=== PATIENT | female | born 1945 | race Caucasian/White ===

== ENCOUNTER 2017-07-28 07:55 | Day surgery (SDC) | payer OTHER ==
[~2017-07-28 07:55] MED LIST: ATENOLOL25 MG PO; CIPRO500 MG PO; CRESTOR10 MG PO; HYDROCHLOROTH12.5 MG PO; OXYCONTIN15 MG PO; PREDNISONE20 MG PO; PROZAC10 MG PO
--- NOTE | 2017-07-28 10:09 | NUR ---
RN ASSISTED MD WITH RIGHT AXILLARY BIOPTY BIOPSY. PT TOLERATES PROCEDURE WELL.
--- NOTE | 2017-07-28 11:12 | NUR ---
LE 1020: VERBAL DC INSTRUCTIONS GIVEN AND PT VERBALIZES UNDERSTANDING. PT DRESSES SELF AND IS DC HOME AMBULATORY AFTER USING THE RESTROOM.
--- NOTE | 2017-07-29 16:39 | OR ---
[facility] [address] [place], [place] [address] Signed DATE OF OPERATION: 07/28/2017 SURGEON: Yumiko Carter MD PREOPERATIVE DIAGNOSES: 1. History of bilateral mastectomy for breast cancer. 2. New mass low axilla with right side suspicious for recurrent breast cancer. POSTOPERATIVE DIAGNOSES: 1. History of bilateral mastectomy for breast cancer. 2. New mass low axilla with right side suspicious for recurrent breast cancer. PROCEDURE: Right low axilla/chest wall core biopsy (Bioptigen, biopsy). SURGEON: Yumiko Carter MD ANESTHESIA: A 1% lidocaine local. INDICATION: This 71-year-old white woman has undergone bilateral mastectomy for breast cancer number of years ago. I saw her for several years ago when she had a nonhealing wound to the right axilla requiring a skin graft for healing. She does have family history of breast cancer in a sister and mother and BRCA testing was performed, which was negative. She has in the past number of months developed a mass in the low right axilla, which clinically is suggestive of local recurrence. Core biopsy is recommended to assess for recurrent disease. The risks of bleeding, infection, need for open procedure, and need for additional treatment, so forth were reviewed with her. She understands and wished to proceed. FINDINGS: The soft tissue mass was firm. Three good core biopsies were obtained with a Bioptigen device. There was no untoward bleeding. DESCRIPTION OF PROCEDURE: In the supine semi-recumbent position, her right arm was elevated and the right axilla prepared with a chlorhexidine solution and draped sterilely. A 1% lidocaine with epinephrine was injected locally. A small incision was made in the skin with an 11 blade and using 14-gauge Bioptigen device, three separate cores of tissue were taken of the offending lesion. A small amount of bleeding was easily controlled with pressure. A Band-Aid was applied. Appropriate labeling of the specimen and handling was undertaken. She tolerated the procedure well. Electronically Signed By: YUMIKO CARTER MD 07/29/17 1639 PATIENT NAME: SUDHA PEDROZA OPERATIVE REPORT DATE OF : 41 PHYSICIAN: YUMIKO CARTER MD REPORT #: [id number] REPORT IS CONFIDENTIAL AND NOT TO BE RELEASED WITHOUT AUTHORIZATION [address] [address] Signed MD BEVERLY Mcmahan/MODL /[id number] cc: Long Robb DO Electronically Signed By: YUMIKO CARTER MD 07/29/17 1639 PATIENT NAME: SUDHA PEDROZA OPERATIVE REPORT DATE OF : 41 PHYSICIAN: YUMIKO CARTER MD REPORT #: [id number] REPORT IS CONFIDENTIAL AND NOT TO BE RELEASED WITHOUT AUTHORIZATION
[2017-08-12] MEDS ORDERED: TRAMADOL HCL50 MG PO (14:57)
[2017-08-12] MEDS ORDERED: VITAMIN C1000 MG PO (14:58)
[2017-08-12] MEDS ORDERED: MULTIVITAMINS1 EAC7 PO (14:58)
[2017-08-12] MEDS ORDERED: CALCIUM 1,0001 EACH PO (14:59)
[2017-09-21] MEDS ORDERED: FEMARA2.5 MG NG (13:42)
[2017-09-21] MEDS ORDERED: ZYRTEC10 M3 PO (13:42)
[2017-09-21] MEDS ORDERED: IBRANCE125 MG PO (13:43)
== END 2017-07-28 10:20 | disposition home or self-care (01) ==
LOC: DS 07:55
PROC: 0HBT3ZX Excision of Right Breast, Percutaneous Approach, Diagnostic (ICD-10-PCS; principal; 2017-07-28)
DX: C50.911 Malignant neoplasm of unspecified site of right female breast (principal); G47.30 Sleep apnea, unspecified; E78.5 Hyperlipidemia, unspecified; I10 Essential (primary) hypertension; F17.200 Nicotine dependence, unspecified, uncomplicated; E66.01 Morbid (severe) obesity due to excess calories; Z68.41 Body mass index [BMI] 40.0-44.9, adult; Z17.0 Estrogen receptor positive status [ER+]; Z88.0 Allergy status to penicillin; Z88.1 Allergy status to other antibiotic agents; Z88.8 Allergy status to other drugs, medicaments and biological substances; Z99.89 Dependence on other enabling machines and devices; Z79.52 Long term (current) use of systemic steroids; Z79.899 Other long term (current) drug therapy; Z90.13 Acquired absence of bilateral breasts and nipples; Z98.41 Cataract extraction status, right eye; Z98.890 Other specified postprocedural states

== ENCOUNTER 2020-09-10 13:44 | Emergency (ER) | payer OTHER ==
[~2020-09-10] VITALS: Ht 165.1 cm; Wt 112.9 kg
[~2020-09-10 13:44] MED LIST changes: +ADVIL PM CAPLE1 EACH PO; +CALCIUM 1,0001 EACH PO; +CITRUCEL479 GM PO; +FEMARA2.5 MG NG; +FISH OIL 1,0001 EAC2 NG; +IBRANCE125 MG PO; +IBUPROFEN200 M1 PO; +LOSARTAN POTAS100 MG PO; +MIRALAX119 GM PO; +MULTIVITAMINS1 EAC7 PO; +NORVASC5 MG PO; +TEMOVATE30 GM TOP; +TOPROL XL100 MG PO; +TRAMADOL HCL50 MG PO; +TYLENOL325 MG PO; +VITAMIN C1000 MG PO; +ZYRTEC10 M3 PO
== END 2020-09-10 15:10 | disposition home or self-care (01) ==
LOC: ED 13:44
DX: S92.901A Unspecified fracture of right foot, initial encounter for closed fracture (principal); W22.8XXA Striking against or struck by other objects, initial encounter

== ENCOUNTER 2020-11-29 22:36 | Emergency (ER) | payer OTHER ==
[~2020-11-29] VITALS: Ht 165.1 cm; Wt 113.0 kg
== END 2020-11-30 00:24 | disposition home or self-care (01) ==
LOC: ED 22:36
DX: L50.9 Urticaria, unspecified (principal); I10 Essential (primary) hypertension; J44.9 Chronic obstructive pulmonary disease, unspecified; F17.200 Nicotine dependence, unspecified, uncomplicated; Z88.8 Allergy status to other drugs, medicaments and biological substances; Z88.0 Allergy status to penicillin; Z88.2 Allergy status to sulfonamides; Z88.1 Allergy status to other antibiotic agents; Z79.899 Other long term (current) drug therapy
CPT/HCPCS: 99283; Q0177

== ENCOUNTER 2023-01-11 10:12 | Emergency (ER) | payer OTHER ==
[~2023-01-11] VITALS: Ht 165.1 cm; Wt 113.0 kg
[2023-01-11 17:40] VITALS: BP 175/56
--- NOTE | 2023-01-12 16:28 | EKG ---
[facility] [address] [facility] [place] [address] Signed Marked sinus bradycardia with 1st degree AV block Abnormal ECG No previous ECGs available Confirmed by PHYLLIS BOWEN MD ([id number]) on 01/12/2023 4:27:49 PM Electronically Signed By: PHYLLIS BOWEN MD 01/12/23 1628 PATIENT NAME: SUDHA PEDROZA Electrocardiogram DATE OF : 41 PHYSICIAN: PHYLLIS BOWEN MD REPORT #: [id number] REPORT IS CONFIDENTIAL AND NOT TO BE RELEASED WITHOUT AUTHORIZATION
== END 2023-01-11 17:40 | disposition short-term general hospital (02) ==
LOC: ED 10:12
DX: I44.1 Atrioventricular block, second degree (principal); R35.0 Frequency of micturition; I10 Essential (primary) hypertension; J44.9 Chronic obstructive pulmonary disease, unspecified; F17.200 Nicotine dependence, unspecified, uncomplicated; Z20.822 Contact with and (suspected) exposure to COVID-19; Z88.8 Allergy status to other drugs, medicaments and biological substances; Z88.0 Allergy status to penicillin; Z88.2 Allergy status to sulfonamides; Z88.1 Allergy status to other antibiotic agents; Z91.048 Other nonmedicinal substance allergy status; Z79.899 Other long term (current) drug therapy
CPT/HCPCS: 36415; 70450; 71045; 80053; 81003; 83735; 83880; 84443; 84484; 85025; 85610; 87502; 93005; 93010; C9803; U0003

== ENCOUNTER 2023-04-21 06:00 | Day surgery (SDC) | payer OTHER ==
[2023-04-14 10:56] VITALS: BP 173/94
--- NOTE | 2023-04-14 12:32 | NUR ---
PT UNABLE TO TELL SALES AND LEASING CONSULTANT HER MEDICATIONS. LOOKED AT MEDICAL RECORD FROM HER PCP AND IT WAS NOTED THAT SHE TAKE ELIQUS 5MG BID. PHONE CALL TO PT LEFT MESSAGE FOR HER TO CALL SALES AND LEASING CONSULTANT BACK. ALSO TALKED WITH DR CARTER AND HE NOTIFIED HIS OFFICE TO MAKE CONTACT WITH PT ALSO. SALES AND LEASING CONSULTANT WILL TRY TO REACH PATIENT LATER TODAY ALSO.
--- NOTE | 2023-04-18 08:34 | NUR ---
PT LEFT VOICE MAIL AND SAID THAT SHE IS GOING TO STOP THE EQULIS, BUT DID NOT TELL ME WHAN. BUT IT IS PER HER CARDIO DOCTOR.
[~2023-04-21] VITALS: Ht 165.1 cm; Wt 115.5 kg
[~2023-04-21 06:00] MED LIST changes: +ELIQUIS5 MG PO
[2023-04-21 06:23] VITALS: BP 159/76
--- NOTE | 2023-04-21 08:18 | NUR ---
PT IN BED. THREE OF HER ADULT CHILDREN IN ROOM. ALL DENIED NEEDS. CONSENTED TO PRAYER. PRAYED FOR SUCCESSFUL PROCEDURE AND ABIDING PEACE. GAVE PAGER #4 TO DAUGHTER.
[2023-04-21] MEDS ORDERED: TYLENOL EXTRA500 MG PO (08:34)
[2023-04-21] MEDS ORDERED: PERCOCET 7.5-31 EACH PO (08:35)
--- NOTE | 2023-04-21 08:42 | NUR ---
04/21/23 0842 Sheets,Kori 0823 PT ARRIVED TO PACU ON RA, O2 SAT 90% AND PT WAKES EASILY TO VERBAL STIMULI. 0825 PT O2 SAT HIGH 80S, PT ENCOURGED TO DEEP BREATHE AND COUGH, PT ABLE TO DO SO. NC PLACED 2L. 0827 O2 SAT CONTINUES TO REMAIN HIGH 80S. O2 INCREASED TO 3L, PT COUGHING AND SMALL AMOUNT OF SPUTUM NOTED. PT DEEP BREATHING OFF AND ON, O2 INCREASED TO LOW 90S. 0835 PT DENIES PAIN AND NAUSEA. PT SIPPING WATER PER REQUEST. 0837 MD AT BEDSIDE TALKING TO PT. 0841 O2 SAT 89%, BREATHING AND COUGHING EDUCATION GIVEN. O2 SAT INCREASED TO LOW 90S.
[2023-04-21 09:35] VITALS: BP 139/59
--- NOTE | 2023-04-21 09:51 | NUR ---
BO 0935: PT IS BACK TO DS FROM PACU. SHE IS ON HER CPAP WITH A 4L BLEED IN OF OXYGEN. HER OXYGEN SATS DROP DOWN TO 84%, SHE IS ENCOURAGED TO COUGH AND DEEP BREATH, SHE GETS UP TO 94%. SOON SHE FALLS BACK ASLEEP AND HAS NO STIMULATION SHE DROPS BACK DOWN TO 86%. FAMILY IS BROUGHT IN THE ROOM TO KEEP HER STIMULATED AND AWAKE. SHE HAS HER CALL LIGHT WITHIN REACH. WATER AND COFFEE ON BEDSIDE TABLE. SHE REPORTS HER HANDS/FINGERS BEING COLD, KAYODE HUGGER IS TURNED ON AND PUT UNDER THE BLANKET TO HELP WARM THEM UP.
[2023-04-21 10:30] VITALS: BP 125/59
--- NOTE | 2023-04-21 10:31 | NUR ---
PT IS TAKEN OFF CPAP AND , SHE IS BEGIN TRIALED ON ROOM AIR. SHE HAS BEEN MAINTAINING AT 90% OR ABOVE ON ROOM AIR. SHE DENIES PAIN. FAMILY IS AT THE BEDSIDE. SHE IS TOLERATING WATER AND COFFEE. CALL LIGHT WITHIN REACH. NO ADDITIONAL NEEDS OR CONCERNS.
--- NOTE | 2023-04-21 11:33 | NUR ---
THIS RN WALKS IN THE ROOM TO SEE SON MESSING WITH THE OXYGEN. SHE IS CURRENTLY ON 1L VIA NC. WHILE ON O2 SHE MAINTAINS ABOVE 90%, WHEN SHE IS OFF SHE QUICKLY DROPS TO 88% OR BELOW. SHE INDICATES THAT SHE WOULD LIKE TO GO HOME. SHE IS EDUCATED THAT IT IS NOT SAFE FOR THIS RN TO SEND HER HOME IF SHE IS NOT ABLE TO TOLERATE ROOM AIR, STAYING AT 90% OR ABOVE. SHE HAS MET ALL OTHER DC CRITERIA AT THIS TIME. WE JUST NEED HER TO BE ABLE TO MAINTAIN AT 90% OR ABOVE ON ROOM AIR.
--- NOTE | 2023-04-21 11:45 | NUR ---
1040: PATIENT PUT FOREIGN AGENT LIGHT. DAUGHTER OF PATIENT WOULD LIKE PATIENT TO GET UP TO COMMODE, STATING THAT PATIENT HAS BEEN INCONTINENT OF URINE IN BED. PATIENT'S O2 SAT ALARMING, DOWN TO 74%. EAR O2 SENSOR PLACED ON PATIENT. EAR SENSOR READING 82% ON ROOM AIR. PATIENT ENCOURAGED TO TAKE DEEP BREATHS. O2 SAT UP TO 91% AFTER TAKING DEEP BREATHS. PATIENT'S O2 SAT FREQUENTLY BACK DOWN IN THE 80s. 2L OXYGEN VIA NASAL CANNULA PLACED ON PATIENT. O2 SAT UP IN MID 90s WITH OXYGEN. PATIENT THEN ASSISTED OOB AND TO BEDSIDE COMMODE. BED LINENS WET WITH URINE. VOID PER BSC. BED LINENS CHANGED. PATIENT ASSISTED BACK TO BED. OXYGEN DIPPING DOWN IN TO 80s INTERMITTENTLY. INCREASES WITH DEEP BREATHS. FAMILY AT BEDSIDE. 1055: PATIENT'S O2 SAT UP TO 95% ON 2 L. OXYGEN DECREASED TO 1 L VIA NC. FAMILY AT BEDSIDE.
[2023-04-21 11:55] VITALS: BP 135/70
--- NOTE | 2023-04-21 11:57 | NUR ---
PT IS STILL HAVING TROUBLE MAINTAINING AN O2 ABOVE 90%. SHE IS PUT BACK UP TO 2L NC AND SHE DROPS DOWN TO 88%. SHE IS ENCOURAGED TO TRY AND STAY AWAKE, COUGH, AND DEEP BREATH. FAMILY IS STILL AT THE BEDSIDE. CALL LIGHT IS WITHIN REACH.
--- NOTE | 2023-04-21 12:24 | NUR ---
PT'S O2 IS TURNED DOWN TO 1L. SHE HAS BEEN STAYING AWAKE AND STIMULATED BY FAMILY.
--- NOTE | 2023-04-21 13:34 | NUR ---
LE 1250: PT HAS BEEN ABLE TO TOLERATE ROOM AIR AT 90% OR ABOVE FOR THE LAST TEN MINUTES. SHE WOULD LIKE TO GO HOME AT THIS TIME. PT AND FAMILY ARE GIVEN WRITTEN AND VERBAL DC INSTRUCTIONS. QUESTIONS ASKED AND ANSWERED. PT AND FAMILY VERBALIZE UNDERSTANDING OF DC INSTRUCTIONS. SHE IS TAKEN OUT TO PERSONAL VEHICLE VIA WC. SHE TRANSFERS HERSELF WITH MINIMAL ASSISTANCE WITHOUT ISSUES. SHE IS CHARTED OUT AT 1300.
--- NOTE | 2023-04-22 02:13 | OR ---
[facility] [address] [place], [place] [address] Signed DATE OF OPERATION: 04/21/2023 SURGEON: Yumiko Carter MD PREOPERATIVE DIAGNOSES: 1. History of right breast carcinoma, status post mastectomy and axillary dissection. 2. Recurrent right axillary mass. 3. Morbid obesity. POSTOPERATIVE DIAGNOSES: 1. History of right breast carcinoma, status post mastectomy and axillary dissection. 2. Recurrent right axillary mass. 3. Morbid obesity. 4. Lesion probably consistent with recurrent breast cancer. PROCEDURE: Excision of right axillary mass. ANESTHESIA: General, LMA; Jerry Soriano, TUBE SIZER AND CUTTER OPERATOR and local 10 mL of 0.25% Marcaine with epinephrine. INDICATION: This 77-year-old morbidly obese white woman, who is a patient of Dr. Dominguez and now Dr. Jolie Richardson, previously Dr. Long Robb. She was found to have a right axillary mass, considered likely recurrent breast cancer. The mass was identified in February of this year including an ultrasound performed on February 21, 2023 with possible invasion into the underlying pectoralis muscle. Image-guided biopsy was performed showing poorly differentiated carcinoma of breast origin, ER positive, HER-2/dima positive, and MN negative. She has been referred for excision of the mass. Understands the risk of bleeding, infection, and recurrence. She now has a pacemaker since January of this year and is on Eliquis anticoagulant for atrial fibrillation. FINDINGS: The mass was most likely recurrence. It is unclear if it was truly invasive to muscle, but was excised widely. There were no other findings of note. DESCRIPTION OF PROCEDURE: The patient was brought to the operating room and given a general LMA-type anesthetic. Preoperative antibiotic Ancef was given. Sequential compression device stockings were used and heparin subcutaneously administered. right axilla and chest wall Electronically Signed By: YUMIKO CARTER MD 04/22/23 0213 PATIENT NAME: SUDHA PEDROZA OPERATIVE REPORT DATE OF : 41 REPORT #: [id number] PHYSICIAN: YUMIKO CARTER MD PCP: JOLIE RICHARDSON MD REPORT IS CONFIDENTIAL AND NOT TO BE RELEASED WITHOUT AUTHORIZATION [facility] [address] [place], [place] [address] Signed was prepared with a chlorhexidine solution and draped sterilely. Examination and palpation revealed a mass. It seems somewhat fixed to the soft tissue, though not certainly that. A transverse incision was made directly over it and dissection carried through the subcutaneous tissue with electrocautery. Wide resection was undertaken including surrounding soft tissue. It did not appear directly invasive to muscle. Complete excision was accomplished. The wound was closed in layers with interrupted 2-0 Vicryl and a running subcuticular 3-0 Vicryl was used for the skin. Steri-Strips were applied as was an Acticoat dressing. A 10 mL of 0.25% Marcaine with epinephrine had been injected locally for postoperative analgesia. The patient was ultimately extubated and transferred to the recovery room in good condition having suffered no complications. Sponge, needle, and instrument counts were correct x3. MD BEVERLY Mcmahan/FRANCIEL /[id number] cc: Dr. Jolie Dominguez MD Copies: LEXUS DOMINGUEZ MD ~ Electronically Signed By: YUMIKO CARTER MD 04/22/23 0213 PATIENT NAME: SUDHA PEDROZA OPERATIVE REPORT DATE OF : 41 REPORT #: [id number] PHYSICIAN: YUMIKO CARTER MD PCP: JOLIE RICHARDSON MD REPORT IS CONFIDENTIAL AND NOT TO BE RELEASED WITHOUT AUTHORIZATION
--- NOTE | 2023-04-30 14:13 | PATH ---
[facility] [address] [place], [place] [address] Signed THIS IS AN ADDENDUM REPORT SPECIMEN(S): A RIGHT AXILLARY MASS SPECIMEN SOURCE: A. RIGHT AXILLARY MASS CLINICAL HISTORY: Pre: R axillary mass. Post: Excision of right axillary mass. FINAL PATHOLOGIC DIAGNOSIS: Right axillary mass: - Invasive carcinoma, consistent with infiltrating ductal carcinoma of breast origin (see comment). COMMENT: The biopsy reveals fibroadipose tissue with invasive carcinoma with histologic and immunohistochemical features consistent with invasive ductal carcinoma of breast origin (CHRISTA-3 and ER positive). It is difficult to determine with certainty whether this is a primary or metastatic tumor as there is no adjacent benign breast epithelium in the sample (this may favor metastasis, however, clinical correlation is requested). If the tumor is determined based on the clinical presentation and imaging studies to be a primary tumor, the synoptic report would be as follows: Infiltrating ductal carcinoma with the following features: - Procedure: Lumpectomy. -- Laterality: Right. - Histologic type: Invasive ductal carcinoma of no special type. - Histologic grade (Ihsan histologic score): - Tubule formation score: 2/3. - Nuclear grade score: 2/3. - Mitotic score: 3/3. - Combined histologic grade: II/III (total score: 7/9). - Tumor size: 2.3 x 1.5 x 1.1 cm. - Ductal carcinoma in situ: Absent. - Lymphovascular invasion: Present, abutting a surgical margin. - Treatment effect: Absent. - Margins: Tumor narrowly free of the inked peripheral surgical margins by < 1mm. PATIENT NAME: SUDHA PEDROZA PATHOLOGY DATE OF : 41 REPORT #: [id number] PHYSICIAN: Haha Pinche PATHOLOGY PCP: MARIE RICHARDSON MD REPORT IS CONFIDENTIAL AND NOT TO BE RELEASED WITHOUT AUTHORIZATION [facility] [address] [place], [place] [address] Signed - Regional lymph nodes: None submitted. - Distant metastasis: Not applicable. - Estrogen receptor: Positive. - 70% of tumor cells with moderate average intensity. - Progesterone receptor: Negative. - Special studies: HER2 studies are pending and will be reported as they become available. - Pathologic stage classification (pTNM): pT2, pNX, pMX. As part of [facility]' Quality Improvement Program, this case was reviewed by another member of our pathology staff. JVR:DS:[facility]:C1NR MICROSCOPIC EXAMINATION: Histologic sections of all submitted blocks are examined by light microscopy. These findings, together with the gross examination, support the pathologic diagnosis. Immunostains performed with appropriate controls on block (A1) show the following: - Smooth Muscle Myosin: Negative in areas of concern. - CHRISTA-3: Positive in tumor nuclei. JVR:sm Block: A1 The cold ischemia time is unknown. The fixative is 10% NBF. The length of fixation is unknown. Estrogen receptor clone SP1 and progesterone receptor clone 1E2 by [employer] [place], [place]. Detection: HRP Polymer Detection on the [employer] with appropriate controls. Nuclear immunoreactivity of 1% or greater is considered positive by ASCO/CAP 2020 guidelines. Internal control cells for ER are absent. Internal control cells for KS are absent. Technical testing is performed at [facility], [place], [place]. GROSS DESCRIPTION: The specimen, labeled and designated "Cindy, right axillary mass," is received in formalin and consists of yellow-weaver, soft fibroadipose tissue fragment that measures 3.5 x 3.0 x 1.5 cm. Specimen is inked. Sectioning through the specimen to reveal kerr-white, firm, ill-defined lesion that measure 2.0 x 1.1 x 1.0 cm. The lesion abuts the outside surface. Crossing through the outside surface is not grossly identified. Bakery Worker sections are submitted in (A1-A3). PATIENT NAME: SUDHA PEDROZA PATHOLOGY DATE OF : 41 REPORT #: [id number] PHYSICIAN: LIANE ALEXIS PCP: MARIE RICHARDSON MD REPORT IS CONFIDENTIAL AND NOT TO BE RELEASED WITHOUT AUTHORIZATION [address] [address] Signed JS (under the direct supervision of a pathologist) The Gross Description was prepared using a voice recognition system. The report was reviewed for accuracy; however, sound-alike word errors, addition and/or deletions may occur. If there is any question about this report, please contact Client Services. ADDITIONAL NOTES: Immunohistochemical and/or in situ hybridization studies were performed on this case with the appropriate positive controls that react as expected. This test was developed and its performance characteristics determined by [facility]. It has not been cleared or approved by the U.S. Food and Drug Administration. The FDA has determined that such clearance or approval is not necessary. This test is used for clinical purposes. It should not be regarded as investigational or for research. [facility] is certified under the Clinical Laboratory Improvement Amendments of 1988 (CLIA) as qualified to perform high complexity clinical laboratory testing. This assay has not been validated for specimens that have been decalcified. PERFORMING LABORATORY: Technical component was performed by [facility], [address] [place] [id number] (CLIA# [id number]). Professional interpretation was performed by [facility], [address] [place] [id number] (CLIA#: [id number]). The technical component was performed by [facility], [address] [place] [address] (CLIA#: [id number]). Professional interpretation was performed by [facility], [address] [facility] [place] [address] (CLIA#: [id number]). REASON FOR ADDENDUM: To report results of additional testing. ADDENDUM PATHOLOGIC DIAGNOSIS: HER-2 protein by IHC, right axillary mass: - Equivocal; IHC score 2+. ADDENDUM COMMENT: In view of the equivocal IHC result, reflex testing for HER-2 amplification by FISH has been ordered and will be reported by addendum. TTP:[facility] ADDENDUM MICROSCOPIC EXAMINATION: PATIENT NAME: SUDHA PEDROZA PATHOLOGY DATE OF : 41 REPORT #: [id number] PHYSICIAN: LIANE ALEXIS PCP: MARIE RICHARDSON MD REPORT IS CONFIDENTIAL AND NOT TO BE RELEASED WITHOUT AUTHORIZATION [facility] [address] [facility] [place], [place] [address] Signed Block: A1. The fixation is 10% buffered formalin. The length of fixation is unknown. HER-2 protein expression by immunohistochemistry using the FDA-approved HER-2 Pathway [place] [facility] [place], at the request of Dr. Farhad Barrios. The assay has not been validated for decalcified specimens. Standardized batch control materials react appropriately. The presence of tumor is confirmed. Scoring is according to ASCO/CAP 2018 guidelines for breast HER-2 testing. This assay and scoring method are not specifically validated for tissue types other than breast. Weak to moderate complete membrane staining observed in greater than 10% of tumor cells; score 2+. PERFORMING LABORATORY: The technical and professional components were performed by [facility], [address] [place] [id number] (CLIA#: [id number]). A: HER2_001 A: HER2_002 REASON FOR ADDENDUM: To add results of additional testing. Accession and block: [id number] ADDENDUM PATHOLOGIC DIAGNOSIS: HER2 gene by FISH, right axillary mass, core biopsy: - Positive for amplification. TP:kh:seymour ADDENDUM MICROSCOPIC EXAMINATION: Specimen type: core biopsy. Cold ischemia time: unknown. The fixation is 10% buffered formalin. The duration of fixation is unknown hours, not applicable to ASCO/CAP guidelines. Scoring method: Manual. Fluorescence in situ hybridization (FISH) study (multiplex probe) for HER2 gene amplification using the Free Flow Power HER2 FISHIQ pharmDx kit was performed at [facility] [place]. The assay has not been validated for decalcified specimens. Controls were processed in the same batch as the patient and reacted appropriately. Scoring for HER2 is performed according to 2018 ASCO/ASCP/CAP consensus guidelines for breast carcinoma. The patient's sample was considered adequate for interpretation. - Number of nuclei counted: 40 PATIENT NAME: SUDHA PEDROZA PATHOLOGY DATE OF : 41 REPORT #: [id number] PHYSICIAN: LIANE PATHOLOGY PCP: MARIE RICHARDSON MD REPORT IS CONFIDENTIAL AND NOT TO BE RELEASED WITHOUT AUTHORIZATION [facility] [address] [place], [place] [address] Signed - Number of HER2 signals counted: 243 - Number of CEP17 signals counted: 101 - Average number of HER2 signals per cell: 6.1 - Average number of CEP17 signals per cell: 2.5 - HER2:CEP17 ratio: 2.4 Positive for HER2 amplification (>= 2.0 and average HER2 signals per cell is >= 4.0). Diagnostician: Farhad Barrios MD Pathologist Diagnostician: Julianne Last MD Pathologist Electronically Signed 04/30/2023 Copies: ~ PATIENT NAME: SUDHA PEDROZA PATHOLOGY DATE OF : 41 REPORT #: [id number] PHYSICIAN: LIANE ALEXIS PCP: MARIE RICHARDSON MD REPORT IS CONFIDENTIAL AND NOT TO BE RELEASED WITHOUT AUTHORIZATION
== END 2023-04-21 13:00 | disposition home or self-care (01) ==
LOC: DS 06:00
PROVIDERS: ATTEND Surgery
PROC: 0JBD0ZZ Excision of Right Upper Arm Subcutaneous Tissue and Fascia, Open Approach (ICD-10-PCS; principal; 2023-04-21 07:30)
DX: C79.89 Secondary malignant neoplasm of other specified sites (principal); I48.91 Unspecified atrial fibrillation; I10 Essential (primary) hypertension; E78.5 Hyperlipidemia, unspecified; G47.30 Sleep apnea, unspecified; Z95.0 Presence of cardiac pacemaker; Z85.3 Personal history of malignant neoplasm of breast; Z80.3 Family history of malignant neoplasm of breast; Z88.1 Allergy status to other antibiotic agents; Z88.0 Allergy status to penicillin; Z88.2 Allergy status to sulfonamides; Z88.8 Allergy status to other drugs, medicaments and biological substances; Z79.01 Long term (current) use of anticoagulants; Z79.899 Other long term (current) drug therapy
CPT/HCPCS: 00400; J0131; J0690; J1100; J1644; J2001; J2405; J2704; J3010; J3475; J3490; J7121

== ENCOUNTER 2023-07-13 15:25 | Emergency (ER) | payer MEDICARE, OTHER ==
[~2023-07-13] VITALS: Ht 165.1 cm; Wt 115.2 kg
[~2023-07-13 15:25] MED LIST changes: +PERCOCET 7.5-31 EACH PO; +TYLENOL EXTRA500 MG PO
[2023-07-13 17:01] LABS: BASOPHILS 1.1 % (0-2); EOSINOPHILS 0.4 % (0-6); HEMATOCRIT 33.9 % (35.0-50.0); HEMOGLOBIN 11.6 g/dL (12.0-18.0); MCHC 34.3 g/dl (30-36); MCV 93.4 fl (81-99); MONOCYTES 6.9 % (0-12); NEUTROPHILS 62.6 % (39-80); PLATELET COUNT 263 K/uL (140-440); RBC 3.63 M/ul (4.3-5.7); RDW 24.8 (10.5-15.0)
[2023-07-13 17:12] LABS: ALBUMIN 3.1 g/dL (3.4-5.0); ALBUMIN/GLOBULIN RATIO 0.94 (1.1-2.4); ANION GAP 13.3 (7-21); BILIRUBIN, TOTAL 0.8 ng/dL (0.2-1.0); BUN/CREATININE RATIO 13.04 (6.0-28.6); CALCIUM 8.6 mg/dL (8.5-10.1); CREATININE, SERUM 0.92 mg/dL (0.55-1.02); MAGNESIUM 1.8 mg/dL (1.8-2.4); POTASSIUM 3.3 mmol/L (3.5-5.1); PROTEIN, TOTAL 6.4 g/dL (6.4-8.2)
[2023-07-13] MEDS ORDERED: MAGNESIUM400 MG PO (18:31)
[2023-07-13] MEDS ORDERED: K-TAB ER20 MEQ PO (18:31)
[2023-07-13 18:51] VITALS: BP 141/81
== END 2023-07-13 18:50 | disposition home or self-care (01) ==
LOC: ED 15:25
PROVIDERS: Emergency Medicine
DX: R19.7 Diarrhea, unspecified (principal); I10 Essential (primary) hypertension; J44.9 Chronic obstructive pulmonary disease, unspecified; F17.200 Nicotine dependence, unspecified, uncomplicated; Z88.0 Allergy status to penicillin; Z88.1 Allergy status to other antibiotic agents; Z88.2 Allergy status to sulfonamides; Z88.8 Allergy status to other drugs, medicaments and biological substances; Z91.048 Other nonmedicinal substance allergy status; Z91.09 Other allergy status, other than to drugs and biological substances; Z79.01 Long term (current) use of anticoagulants; Z79.899 Other long term (current) drug therapy
CPT/HCPCS: 36415; 80053; 83735; 85025; 85060; 87045; 87046; 87493; A9270; J7030

== ENCOUNTER 2023-10-18 17:22 | Emergency (ER) | payer OTHER ==
[~2023-10-18] VITALS: Ht 165.1 cm; Wt 104.1 kg
[~2023-10-18 17:22] MED LIST changes: +K-TAB ER20 MEQ PO; +MACROBID 100 M100 MG PO; +MAGNESIUM400 MG PO; +ONDANSETRON ODT4 MG PO; +STIOLTO RESPIMAT4 GM IH
--- OUTSIDE RECORDS SUMMARY | 2023-10-18 17:26 | XMS ---
PreManage Notification: SUDHA PEDROZA Security Donor Specialist Events No recent Security Events currently on file [facility] There are no care providers on record at this time. Reji has no Care Guidelines for this patient. Lm VISIT COUNT (12 MO.) 4 [facility] [place] TOTAL 4 NOTE: Visits indicate total known visits. ED/UCC VISIT TRACKING (12 MO.) 10/18/2023 17:23 [facility] [place] TYPE: Emergency COMPLAINT: - POSS UTI 08/04/2023 19:42 [facility] [place] TYPE: Emergency COMPLAINT: - SHORTNESS OF BREATH DIAGNOSES: - Allergy status to other antibiotic agents - Allergy status to other drugs, medicaments and biological substances - Allergy status to penicillin - Allergy status to sulfonamides - Chronic obstructive pulmonary disease with (acute) exacerbation - Contact with and (suspected) exposure to COVID-19 - Essential (primary) hypertension - Fever, unspecified - long-term (current) use of anticoagulants - Nicotine dependence, unspecified, uncomplicated - Other fdc (current) drug therapy - Other nonmedicinal substance allergy status - Urinary tract infection, site not specified 07/13/2023 15:26 [facility] [place] TYPE: Emergency COMPLAINT: - DIARRHEA DIAGNOSES: - Allergy status to other antibiotic agents - Allergy status to other drugs, medicaments and biological substances - Allergy status to penicillin - Allergy status to sulfonamides - Chronic obstructive pulmonary disease, unspecified - Diarrhea, unspecified - Essential (primary) hypertension - long-term (current) use of anticoagulants - Nicotine dependence, unspecified, uncomplicated - Other allergy status, other than to drugs and biological substances - Other staff air defense officer (current) drug therapy - Other nonmedicinal substance allergy status 01/11/2023 10:[address] [facility] [place] TYPE: Emergency COMPLAINT: - ABDOMINAL PAIN DIAGNOSES: - Allergy status to other antibiotic agents - Allergy status to other drugs, medicaments and biological substances - Allergy status to penicillin - Allergy status to sulfonamides - Atrioventricular block, second degree - Chest pain, unspecified - Chronic obstructive pulmonary disease, unspecified - Contact with and (suspected) exposure to COVID-19 - Essential (primary) hypertension - Frequency of micturition - Nicotine dependence, unspecified, uncomplicated - Other fdc (current) drug therapy - Other nonmedicinal substance allergy status INPATIENT VISIT TRACKING (12 MO.) 01/11/2023 23:48 [facility] TYPE: General Medicine COMPLAINT: - 2 1 AV Block DIAGNOSES: - Bradycardia, unspecified [email or web address]
[2023-10-18 18:59] LABS: RDW 16.1 (10.5-15.0)
[2023-10-18] MEDS ORDERED: IBLOOD GLUCOSE TEST STRIP 1 EA TEST VI ONE (19:00)
[2023-10-18 19:01] LABS: BILIRUBIN, URINE NEGATIVE (negative); BLOOD/HGB, URINE LARGE (Negative); KETONE, URINE NEGATIVE (Negative); LEUK ESTERASE, URINE LARGE (negative); NITRITE, URINE POSITIVE (negative)
[2023-10-18 19:02] LABS: BASOPHILS 3.1 % (0-2); EOSINOPHILS 3.4 % (0-6); HEMATOCRIT 31.9 % (35.0-50.0); HEMOGLOBIN 10.9 g/dL (12.0-18.0); LYMPHOCYTES 41.8 % (24-44); MCH 38.1 (27-36); MCHC 34.4 g/dl (30-36); MCV 110.8 fl (81-99); MONOCYTES 10.9 % (0-12); NEUTROPHILS 40.8 % (39-80); PLATELET COUNT 232 K/uL (140-440); RBC 2.88 M/ul (4.3-5.7)
[2023-10-18 19:07] LABS: BACTERIA, URINE 2+ /hpf (negative); CASTS, URINE NONE SEEN \\lpf; COLLECTION TYPE, URINE CLEAN CATCH; CRYSTALS, URINE NONE SEEN (0-1+); EPITHELIAL CELLS, URINE 0 /lpf (0-1+); REFLEX CULTURE, URINE Yes (No); WHITE BLOOD CELLS, URINE >50 /HPF (0-5)
[2023-10-18 19:12] LABS: ALBUMIN 3.1 g/dL (3.4-5.0); ALBUMIN/GLOBULIN RATIO 0.91 (1.1-2.4); ALCOHOL, MEDICAL <3 ng/dL (<3); ALKALINE PHOSPHATASE 65 U/L (46-116); ALT (SGPT) 13 U/L (14-59); ANION GAP 13.6 (7-21); AST (SGOT) 18 U/L (15-37); BILIRUBIN, TOTAL 0.8 ng/dL (0.2-1.0); BUN/CREATININE RATIO 11.88 (6.0-28.6); CALCIUM 9.1 mg/dL (8.5-10.1); CARBON DIOXIDE 29 mmol/L (21-32); CHLORIDE 104 mmol/L (98-107); CREATININE, SERUM 1.01 mg/dL (0.55-1.02); GLOMERULAR FILTRATION RATE,EST 57 mL/min (>60); POTASSIUM 3.6 mmol/L (3.5-5.1); PROTEIN, TOTAL 6.5 g/dL (6.4-8.2); UREA NITROGEN 12 mg/dL (7-18)
[2023-10-18 19:21] LABS: AMPHETAMINES, URINE NEGATIVE (NEGATIVE); BARBITURATES, URINE NEGATIVE (NEGATIVE); BENZODIAZEPINE, URINE NEGATIVE (NEGATIVE); BUPRENORPHINE, URINE NEGATIVE (NEGATIVE); CANNABINOID, URINE NEGATIVE (NEGATIVE); COCAINE, URINE NEGATIVE (NEGATIVE); ECSTASY, URINE NEGATIVE (NEGATIVE); FENTANYL, URINE NEGATIVE (NEGATIVE); METHADONE, URINE NEGATIVE (NEGATIVE); OPIATES, URINE NEGATIVE (NEGATIVE); OXYCODONE, URINE NEGATIVE (NEGATIVE); PHENCYCLIDINE, URINE NEGATIVE (NEGATIVE)
[2023-10-18 20:05] LABS: PH, VENOUS 7.502 (7.31-7.41)
[2023-10-18] MEDS ORDERED: levoFLOXacin 500 MG TAB PO ONE (20:15)
[2023-10-18] MEDS ORDERED: LEVOFLOXACIN500 MG PO (20:34)
[2023-10-18 20:49] VITALS: BP 175/85
== END 2023-10-18 20:50 | disposition home or self-care (01) ==
LOC: ED 17:22
PROVIDERS: Emergency Medicine; Family Medicine
DX: N39.0 Urinary tract infection, site not specified (principal); I10 Essential (primary) hypertension; J44.9 Chronic obstructive pulmonary disease, unspecified; F17.200 Nicotine dependence, unspecified, uncomplicated; Z88.0 Allergy status to penicillin; Z88.1 Allergy status to other antibiotic agents; Z88.2 Allergy status to sulfonamides; Z88.8 Allergy status to other drugs, medicaments and biological substances; Z91.048 Other nonmedicinal substance allergy status; Z79.899 Other long term (current) drug therapy; Z79.01 Long term (current) use of anticoagulants
CPT/HCPCS: 36415; 51701; 70450; 80053; 80307; 81001; 82803; 84484; 85025; 85060; 87088; 99285-25; G0480

== ENCOUNTER 2024-02-15 22:16 | Inpatient (IN) | payer MEDICARE, OTHER ==
[~2024-02-15] VITALS: Ht 165.1 cm; Wt 94.7 kg
[~2024-02-15 22:16] MED LIST changes: +ARTHRITIS PAIN650 MG PO; +CEFDINIR300 MG PO; +CHLORHEXIDINE473 ML MM; +CLINDAMYCIN HC300 MG PO; +DAILY VALUE1 EACH PO; +FUROSEMIDE40 MG PO; +LASIX40 MG PO; +LEVOFLOXACIN500 MG PO; -MULTIVITAMINS1 EAC7 PO; +PROBIOTIC1 EAC1 PO; -PROZAC10 MG PO; +PROZAC20 MG PO; +RIFAMPIN300 MG PO; +ROSUVASTATIN CA20 MG PO; +TRIAMCINOLONE A15 G3 TOP; +TRIAMCINOLONE A15 GM TOP; -TYLENOL325 MG PO; +VENTOLIN HFA18 GM INH; -ZYRTEC10 M3 PO; +ZYRTEC10 MG PO
--- OUTSIDE RECORDS SUMMARY | 2024-02-15 22:18 | XMS ---
PreManage Notification: SUDHA PEDROZA Security Epic Analyst Events No recent Security Events currently on file CRITERIA MET - [facility] - 2 Visits in 30 Days CARE PROVIDERS CHANA SCOTT Emergency Medicine Current PHONE: [phone] NIGEL FORBES Nurse Practitioner Current PHONE: [phone] Reji has no Care Guidelines for this patient. Lm VISIT COUNT (12 MO.) [address] [place] [address] TOTAL 6 NOTE: Visits indicate total known visits. ED/UCC VISIT TRACKING (12 MO.) 02/15/2024 22:17 [facility] [place] TYPE: Emergency COMPLAINT: - ABDOMINAL PAIN 01/23/2024 14:30 [facility] [place] TYPE: Emergency COMPLAINT: - BLOOD PRESSURE PROBLEM 12/28/2023 16:01 [facility] [place] TYPE: Emergency COMPLAINT: - POSS BLOOD CLOT DIAGNOSES: - Allergy status to other antibiotic agents - Allergy status to other drugs, medicaments and biological substances - Allergy status to penicillin - Allergy status to sulfonamides - Chronic obstructive pulmonary disease, unspecified - Chronic pulmonary edema - Essential (primary) hypertension - Hypoxemia - adjunct faculty for medical terminology (current) use of anticoagulants - Nicotine dependence, unspecified, uncomplicated - Other fpc (current) drug therapy - Shortness of breath 10/18/2023 17:23 [facility] [place] TYPE: Emergency COMPLAINT: - POSS UTI DIAGNOSES: - Allergy status to other antibiotic agents - Allergy status to other drugs, medicaments and biological substances - Allergy status to penicillin - Allergy status to sulfonamides - Chronic obstructive pulmonary disease, unspecified - Disorientation, unspecified - Essential (primary) hypertension - snf (current) use of anticoagulants - Nicotine dependence, unspecified, uncomplicated - Other parts counterman (current) drug therapy - Other nonmedicinal substance allergy status - Urinary tract infection, site not specified 08/04/2023 19:42 [facility] [place] TYPE: Emergency [...] Essential (primary) hypertension - Fever, unspecified - adjunct faculty for medical terminology (current) use of anticoagulants - Nicotine dependence, unspecified, uncomplicated - Other fpc (current) drug therapy - Other nonmedicinal substance [...] Diarrhea, unspecified - Essential (primary) hypertension - adjunct faculty for medical terminology (current) use of anticoagulants - Nicotine dependence, unspecified, uncomplicated - Other allergy status, other than to drugs and biological substances - Other parts counterman (current) drug therapy - Other nonmedicinal substance allergy status INPATIENT VISIT TRACKING (12 MO.) 01/24/2024 11:26 [facility] [place] TYPE: Medical Surgical COMPLAINT: - ACUTE HYPOXIC RESPIRATORY FAILURE DIAGNOSES: - Acquired absence of bilateral breasts and nipples - Acquired absence of bilateral breasts and nipples - Acute kidney failure, unspecified - Acute kidney failure, unspecified - Acute respiratory failure with hypoxia - Allergy status to other antibiotic agents - Allergy status to other antibiotic agents - Allergy status to other drugs, medicaments and biological substances - Allergy status to other drugs, medicaments and biological substances - Allergy status to penicillin - Allergy status to penicillin - Allergy status to sulfonamides - Allergy status to sulfonamides - Chronic obstructive pulmonary disease with (acute) lower respiratory infection - Chronic obstructive pulmonary disease with (acute) lower respiratory infection - Heart failure, unspecified - Heart failure, unspecified - Hypertensive heart disease with heart failure - Hypertensive heart disease with heart failure - Hypokalemia - Hypokalemia - Hypomagnesemia - Hypomagnesemia - snf (current) use of anticoagulants - adjunct faculty for medical terminology (current) use of anticoagulants - Nicotine dependence, cigarettes, uncomplicated - Nicotine dependence, cigarettes, uncomplicated - Other fpc (current) drug therapy - Other fpc (current) drug therapy - Other specified abnormal findings of blood chemistry - Other specified abnormal findings of blood chemistry - Personal history of malignant neoplasm of breast - Personal history of malignant neoplasm of breast - Pneumonia, unspecified organism - Pneumonia, unspecified organism - Presence of automatic (implantable) cardiac defibrillator - Presence of automatic (implantable) cardiac defibrillator - Urinary tract infection, site not specified - Urinary tract infection, site not specified [email or web address]
[2024-02-15] MEDS ORDERED: FAMOTIDINE 20 MG/ 2 ML VIAL IV ONE (22:30)
[2024-02-15 23:02] LABS: ALBUMIN 2.9 g/dL (3.4-5.0); ALBUMIN/GLOBULIN RATIO 0.76 (1.1-2.4); ANION GAP 12.3 (7-21); BILIRUBIN, TOTAL 0.6 ng/dL (0.2-1.0); BUN/CREATININE RATIO 16.36 (6.0-28.6); CALCIUM 8.6 mg/dL (8.5-10.1); CREATININE, SERUM 1.1 mg/dL (0.55-1.02); POTASSIUM 4.3 mmol/L (3.5-5.1); PROTEIN, TOTAL 6.7 g/dL (6.4-8.2)
[2024-02-15 23:25] LABS: BASOPHILS 0.4 % (0-2); EOSINOPHILS 1.4 % (0-6); HEMATOCRIT 32.2 % (35.0-50.0); HEMOGLOBIN 10.5 g/dL (12.0-18.0); LYMPHOCYTES 12.2 % (24-44); MCH 29.1 (27-36); MCHC 32.7 g/dl (30-36); MCV 89.1 fl (81-99); PLATELET COUNT 173 K/uL (140-440); RBC 3.62 M/ul (4.3-5.7); RDW 17.6 (10.5-15.0)
[2024-02-15 23:44] LABS: BILIRUBIN, URINE NEGATIVE (negative); BLOOD/HGB, URINE NEGATIVE (Negative); KETONE, URINE TRACE (Negative); LEUK ESTERASE, URINE NEGATIVE (negative); NITRITE, URINE NEGATIVE (negative); PH, URINE 5.5 (5-7)
[2024-02-16] MEDS ORDERED: TRAMADOL HCL 50 MG TAB PO ONE (03:15)
[2024-02-16] MEDS ORDERED: LIDOCAINE HCL 4% 1 EACH PATCH TD ONE (03:15)
[2024-02-16] MEDS ORDERED: ENOXAPARIN SODIUM 40 MG/0.4 ML SYR SUB-Q SCH (10:30)
--- NOTE | 2024-02-16 10:50 | NUR ---
REPORT RECIEVED FROM DAWNA MORALES. PT BROUGHT TO ROOM 110 BY THIS RN VIA STRETCHER. DAWNA HOWELL AND SN PAPO IN TO ASSIST WITH TRANSFERRING PT FROM STRETCHER TO BED. VITALS COMPLETE. ASSESSMET COMPLETE. LUNG SOUNDS CLEAR IN RUL, MARTY AND RLL. DIMINISHED IN LLL. BOWEL TONES ACTIVE. PT HAS HX OF PACEMAKER. PEDAL PULSES PALPABLE, FAINT. RADIAL PULSES PALPABLE, STRONG. BRUISING NOTED TO BILATERAL HANDS. LIDOCAINE PATCH NOTED TO LEFT LOWER BACK. PUREWICK IN PLACE. PT PLACED ON 3L NC WITH O2 SATS AT 93%. PT REPORTS 3L O2 IS CHRONIC. ASKED PT WHAT THE DATE IS AND PT STATES "HOLD ON A SECOND. [employer]." INFORMED PT THAT PT DOES NOT HAVE CELL PHONE HERE AND PT STATES "OH." PT EDUCATED ON DATE. ASKED PT IF PT KNOWS WHERE WE ARE AND PT STATES "YES. WE ARE IN [place], [place]. [address] INFORMED PT WE ARE NOT AT [address], WE ARE IN THE HOSPITAL. ASKED PT WHY PT IS IN THE HOSPITAL AND PT STATES "YEAH. BECAUSE YOU GUYS ARE TRYING TO GET ME IN ONE OF THOSE ROOMS." INFORMED PT THAT PT IS HERE FOR PAIN. PT STATES "[place]." PT PROVIDED WATER. 1200 LUNCH TRAY ARRIVES. 1232 PT REPORTING PAIN 10/10 TO LOW BACK. PRN PAIN MEDICAITON ADMINSITERED, SEE MAR. PT TAKES PO MEDICATION WITH NO ISSUES. ATTEMPTED TO PUT TV ON FOR PT. TV NOTED TO NO TURN ON WITH REMOTE CONTROL OR CALL LIGHT USE. EDUCATED PT ENGINEERING DEPARTMENT CHAIR LIGHT USE. CALL LIGHT IN PTs HAND. BED ALARM ON. PT DENIES ANY OTHER NEEDS AT THIS TIME.
[2024-02-16 11:18] VITALS: BP 163/51
[2024-02-16 11:22] VITALS: BP 156/54
[2024-02-16] MEDS ORDERED: MORPHINE SULFATE 4 MG/ML VIAL IV PRN (12:00)
[2024-02-16] MEDS ORDERED: PHARMACY RENAL DOSE ADJUSTMENT 1 DOSE MISC PO SCH (12:00)
[2024-02-16] MEDS ORDERED: HYDROCODONE/ACETA 5/325 TAB PO PRN (12:00)
--- NOTE | 2024-02-16 12:04 | NUR ---
UR CLINICAL REVIEW: [facility]/16/24 @1030 YES AUTH PENDING CLINICAL NEEDS. 02/17/24
[2024-02-16] MEDS ORDERED: FLUOXETINE HCL10 MG PO (13:06)
[2024-02-16 13:44] VITALS: BP 132/53
--- NOTE | 2024-02-16 15:50 | NUR ---
WENT TO PATIENT'S ROOM TO DISCUSS THE PLAN OF CARE. PATIENT IS CONFUSED. CALLED THE PATIENT'S DAUGHTER COBY TO ANSWER QUESTIONS ABOUT THE PATIENT'S ASSESSMENT. PATIENT WAS RELEASED FROM [facility] AT THE [place] [facility] THE PATIENT WAS UNHAPPY AND CALLED THE FAMILY AND WANTED TO GO HOME. PATIENT LIVES IN HER HOUSE WITH HER GRAND DAUGHTER WHO IS THE PATIENT'S ARCHITECTURAL DRAFTSPERSON. PATIENT'S BACK PAIN HAS GOTTEN EXTERMLY BAD SO THE PATIENT STATED SHE WAS CALLING 911 TO BRING HER TO THE HOSPITAL. PATIENT HAS ALSO BEEN HAVING HALLUCINATIONS FOR LAST COUPLE MONTHS. PATIENT HAS A DOCTOR'S APPT. IN ORIENT IN APR. TO FIGURE OUT WHY THE PATIENT IS SO COFUSED AND HAVING HALLUCINATIONS. FAMILY DOES NOT WANT PLACEMENT.PATIENT WILL GO HOME WITH FAMILY AND CARE GIVERS WHEN MEDICALLY STABLE. PATIENT USES A WALKER AND WHEELCHAIR AND HER GRANDDAUGHTR HELPS WITH PATIENT'S ADLS. PATIENT CAN AFFORD HOUSING,FOOD AND UTILITIES.
--- NOTE | 2024-02-16 16:28 | NUR ---
MED REC COMPLETE
[2024-02-16 17:02] VITALS: BP 132/53
--- NOTE | 2024-02-16 17:51 | NUR ---
PTs DIL AMADOR TO NURSES STATION WITH PTs HOME CPAP. RT CALLED AND NOTIFIED. NO OTHER NEEDS FROM THIS RN. CALL LIGHT IN REACH. BED ALARM ON.
[2024-02-16 18:35] VITALS: BP 134/40
--- NOTE | 2024-02-16 19:33 | NUR ---
REPORT RECEIVED FROM DAY RN. PATIENT RESTING IN BED WITH OXYGEN ON AT 3L/MIN VIA NC. DENIES ANY PAIN AT THIS TIME. DENIES ANY NEEDS AT THIS TIME. CALL LIGHT WITHIN REACH. BED ALARM ON.
[2024-02-16] MEDS ORDERED: ALBUTEROL/IPRATROPIUM 3 ML NEB INH SCH (20:00)
[2024-02-16] MEDS ORDERED: QUETIAPINE FUMARATE 25 MG TAB PO SCH (21:00)
[2024-02-16] MEDS ORDERED: LIDOCAINE PATCH REMOVAL 1 EA TD SCH (21:00)
[2024-02-16] MEDS ORDERED: CYCLOBENZAPRINE HCL 10 MG TAB PO SCH (21:00)
--- NOTE | 2024-02-16 21:50 | NUR ---
PATIENT RESTING IN BED. HS MEDICATIONS GIVEN. C/O ABDOMNAL PAIN. ABD GUARDED AND TENDER WITH PALPATION. BOWEL TONES ACITVE X 4 QUADRANTS. PATIENT REPOSITIONED IN BED. NEW PUREWICK PLACE. FRESH WATER GIVEN AND OFFERED. NO NOTED ISSUES WITH SWALLOWING. PATIENT IS ALERT TO SELF. VSS APART FROM TEMP OF 101.6. CALL LIGHT WITHIN REACH. BED ALARM ON.
[2024-02-16 21:55] VITALS: BP 128/48
--- NOTE | 2024-02-16 22:30 | NUR ---
NOTIFIED OF TEMP OF 101.6, C/O ABD PAIN AND COLOR OF URINE OUTPUT. NEW ORDERS RECEIVED AND VERIFIED VIA VERBAL READ BACK SEE NOV.
[2024-02-16] MEDS ORDERED: ACETAMINOPHEN 500 MG TAB PO PRN (22:45)
[2024-02-17] VITALS (10 sets, daily range): BP systolic 104–132; BP diastolic 36–60
--- NOTE | 2024-02-17 00:19 | NUR ---
ALARM SOUNDING CPOX. FOUND OXIMASK ON PT CHIN, O2 SATS 82. ONCE MASK APPLIED, SATS UP TO 90'S.
--- NOTE | 2024-02-17 02:03 | NUR ---
PATIENT RESTING IN BED WITH EYES CLOSED. RESPIRATIONS EVEN AND UNLABORED. VSS. NO REPORTS OF PAIN AT THIS TIME. BED ALARM ON. CALL LIGHT WITHIN REACH.
--- NOTE | 2024-02-17 04:08 | NUR ---
URINE SAMPLE OBTAINED AND SENT TO LAB. CPOX READINGS WNL. PATIENT ON 5L O2 VIA OXI MASK. CALL LIGHT WITHIN REACH. BED ALARM ON.
[2024-02-17 04:09] LABS: BILIRUBIN, URINE NEGATIVE (negative); BLOOD/HGB, URINE NEGATIVE (Negative); KETONE, URINE NEGATIVE (Negative); LEUK ESTERASE, URINE NEGATIVE (negative); NITRITE, URINE NEGATIVE (negative); PH, URINE 5.5 (5-7)
[2024-02-17 05:16] LABS: BASOPHILS 0.3 % (0-2); EOSINOPHILS 0.1 % (0-6); HEMATOCRIT 27.5 % (35.0-50.0); HEMOGLOBIN 9.1 g/dL (12.0-18.0); MCH 29.2 (27-36); MCHC 32.9 g/dl (30-36); MCV 88.7 fl (81-99); MONOCYTES 11.1 % (0-12); NEUTROPHILS 78.5 % (39-80); PLATELET COUNT 155 K/uL (140-440); RDW 17.5 (10.5-15.0)
--- NOTE | 2024-02-17 05:21 | NUR ---
OPERATIONS ARCHITECT ENTERED ROOM AND OBTAINED VITALS AND I&O. OPERATIONS ARCHITECT AND RN CHANGED PUREWICK. RN REMAINS IN ROOM. CALL LIGHT WITHIN REACH.
[2024-02-17 05:22] LABS: BUN/CREATININE RATIO 16.27 (6.0-28.6); CALCIUM 8.3 mg/dL (8.5-10.1); CREATININE, SERUM 0.86 mg/dL (0.55-1.02)
--- NOTE | 2024-02-17 05:28 | NUR ---
VANESSA CHANGED. VSS. PATIENT C/O PAIN /10 IN LOWER BACK WHEN MOVING AND REPOSITIONED IN BED. PRN GIVEN SEE NOV. ALERT AND ORIENTED TO SELF AND PLACE THIS AM. NO FURTHER NEEDS AT THIS TIME. CALL LIGHT WITHIN REACH. BED ALARM ON.
--- NOTE | 2024-02-17 06:19 | NUR ---
PATIENT RESTING IN BED WITH EYES CLOSED. CPOX IN PLACE READING WNL, OXI MASK ON WITH 4L OXYGEN RUNNING AT THIS TIME. CALL LIGHT WITHIN REACH. BED ALARM ON. DAUGHTER IN LAW CALLED NURSES STATION THIS AM REQUESTING AN UPDATE. RN UPDATED ON HOW PATIENTS NIGHT WENT.
--- NOTE | 2024-02-17 08:31 | NUR ---
SAS DEVELOPER ANALYST BROUGHT PT ICE WATER PER RN REQUEST. RN IS IN THE ROOM. PT WAS TRYING TO SIT UP TO EAT BREAKFAST BUT WAS COMPLANING OF BAD BACK PAIN. RN IN THE ROOM AND IS AWARE. CALL LIGHT IS WIHTIN REACH
[2024-02-17 08:38] LABS: PH, VENOUS 7.461 (7.31-7.41)
--- NOTE | 2024-02-17 08:40 | NUR ---
IN TO ADMINISTER MEDICATIONS, SEE MAR. PT RESPONDS WHEN ADDRESSED. PT REPORTING PAIN 6/10 TO LOW BACK. PRN TYLENOL ADMINISTERED, SEE MAR. PT TAKES PO MEDICATIONS WITH NO ISSUES. ASSESSMENT COMPLETE. LUNG SOUNDS CLEAR. BOWEL TONES ACTIVE. ABD SOFT, TENDER WITH PALPATION. HEART TONES, PACEMAKER NOTED PER PTs HX. PEDAL PULSES PALPABLE, EQUAL, STRONG. PT SAT UP IN BED, PT NOTED TO TENSE UP WITH HOB ELEVATED. PT A&O TO SELF. ASKED PT WHAT THE DATE IS AND PT STATES "NO I DO NOT." ASKED PT WHAT MONTH IT IS AND PT STATES "IS IT DECEMBER? MAYBE THE ?" INFORMED PT IT IS February. PT STATES "YOU MEAN I LOST TWO MONTHS." ASKED PT WHAT YEAR IT IS AND PT STATES "." ASKED PT WHERE PT IS AT THIS MOMENT AND PT STATES "I BELIEVE WE ARE IN [place]." INFORMED PT WE ARE IN [facility] THE HOSPITAL. PT DENIES ANY OTHER NEEDS AT THIS TIME. CALL LIGHT IN REACH. BED ALARM ON.
--- NOTE | 2024-02-17 10:24 | NUR ---
VISITED DURING SPIRITUAL CARE ROUNDS. PT EXPRESSED SADNESS AND FRUSTRATION AT LOSS OF MOBILITY, EXHIBITED STRONG [place] AND RELATIONAL RESOURCES. I LISTENED EMPATHETICALLY, PROVIDED SUPPORTIVE PRESENCE, EXPLORED HOPE, PROVIDED ANTICIPATORY GUIDANCE, VERIFIED CONNECTION WITH [place] [employer], PROVIDED PRAYER.
--- NOTE | 2024-02-17 10:53 | NUR ---
UR CLINICAL REVIEW: SAGRARIO PONCE [facility] IN[facility] 02/17/24 @ 0830 YES, MATCHES AUTH PENDING PLAN TO RETURN HOME WITH GRANDDAUGHTER WHEN STABLE 02/20/24
--- NOTE | 2024-02-17 11:30 | NUR ---
Spoke with pt, DIL, and son. Discussed possible dc tomorrow. All are in agreement they do not want placement and pt wants to go home. The debated home health or OP for fu. Dr. robert and discussed he would prefer Home Health at this time as pt does state she has pain and skips her therapy at times. He prefers to she start with HH and pt agrees. Son asks I call their sister Marry and let her know. Pt denies other needs. I will send orders today as pt will most likely dc over the weekend.
--- NOTE | 2024-02-17 12:00 | NUR ---
IN TO ROUND ON PT. PT RESTING IN BED WITH EYES CLOSED, RR EVEN AND UNLABORED. PT AWAKENS WHEN THIS RN ENTERS ROOM. SHOWER CAP REMOVED FROM PTs HEAD. PTs HAIR COMBED. FAMILY ARRIVES. PT AND FAMILY DENY ANY OTHER NEEDS FROM THIS RN. CALL LIGHT IN REACH. BED ALARM ON. DR. ZALDIVAR NOTIFIED FAMILY IS IN ROOM.
[2024-02-17] MEDS ORDERED: ALBUTEROL/IPRATROPIUM 3 ML NEB ONE (13:50)
--- NOTE | 2024-02-17 13:50 | NUR ---
Spoke with Marry and she is in agreement for HH to start.
--- NOTE | 2024-02-17 13:56 | NUR ---
UR CLINICAL REVIEW: [facility] 02/17/24 @ 0830 NO AUTH REQUIRED MATCHES-YES PLAN TO DC TO HOME WITH GRANDDAUGHTER.
--- NOTE | 2024-02-17 14:00 | NUR ---
IM letter completed. Pt c/o back pain when attempting to sign letter. Attempted to discuss how family will be able to care for her at home. Pt cont. to refuse placement and by report from CM family are in agreement. Plan for dc to home with HH for therapy and family to provide care.
--- NOTE | 2024-02-17 14:41 | NUR ---
IN PT REPORTING PAIN. PT POINTS TO 9 ON FACES SCALE FOR PAIN. PT NOTE TO BE TENSE AND GRIMMACE. PRN TYLENOL AND SCHEDULED FLEXERIL ADMINISTERED, SEE MAR. HOT PACK APPLIED TO PTs LEFT SIDE WITH GOWN BETWEEN HOT PACK AND SKIN. PTs FAMILY IN ROOM. PT DENIES ANY OTHER NEEDS AT THIS TIME. CALL LIGHT IN REACH. BED ALARM ON.
--- NOTE | 2024-02-17 15:53 | NUR ---
IN TO ROUND ON PT. PT SITTING UP IN BED SEMI-FOWLERS. PT REPSONDS WHEN ADDRESSED. ASSESSMENT COMPLETE. LUNG SOUNDS CLEAR. FLACC SCORE OF 2 NOTED. HOT PACK REMOVED PER PT REQUEST. PEDAL PULSES PALPABLE, EQUAL, STRONG. PT REQUESTING SNACK. SNACK PROVIDED. PT DENIES ANY OTHER NEEDS AT THIS TIME. CALL LIGHT IN REACH. BED ALARM ON.
--- NOTE | 2024-02-17 17:09 | NUR ---
MEDICAL AFFAIRS DIRECTOR CHANGED PT PUREWICK. PT BRIEF WAS NOT SOILED. PT WAS ABLE TO LIFE HER LEFT LEG BUT WAS IN PAIN. MEDICAL AFFAIRS DIRECTOR PERFORMED CARMEN CARE.
--- NOTE | 2024-02-17 19:23 | NUR ---
RECEIVED REPORT FROM DAY SHIFT RN. PATIENT IS RESTINGING BED WATCHING TV. DENIES ANY PAIN OR DISCOMFORT AT THIS TIME. DENIES ANY FURTHER NEEDS AT THIS TIME. CALL LIGHT WITHIN REACH, BED ALARM ON.
[2024-02-17] MEDS ORDERED: ALBUTEROL/IPRATROPIUM 3 ML NEB INH SCH (20:00)
[2024-02-17] MEDS ORDERED: SENNOSIDES/DOCUSATE 1 EA TAB PO SCH (21:00)
[2024-02-17] MEDS ORDERED: POLYETHYLENE GLYCOL 3350 1 PACKET PO SCH (21:00)
--- NOTE | 2024-02-17 21:00 | NUR ---
TERRAZZO LAYER OBTAINED VITALS AND I&O. PT ICE WATER REFILLED. PT STATES NO FURTHER NEEDS AT THIS TIME. CALL LIGHT PLACED WITHIN REACH.
--- NOTE | 2024-02-17 21:28 | NUR ---
PATIENT RESTING IN BED AWAKE WATCHING TV. VSS, C/O PAIN WHEN ATTEMPTING TO REPOSITION PATIENT IN BED. HS MEDICATIONS GIVEN. BOWEL TONES HYPOACTIVE X 4 QUADRANTS. LUNGS CTA. RT IN WITH PATIENT TO ASSIST WITH PUTTING ON CPAP FOR NIGHT. CPOX IN PLACE, READINGS WNL. NO FURTHER NEEDS AT THIS TIME. CALL LIGHT WITHIN REACH BED ALAMR ON.
--- NOTE | 2024-02-17 23:00 | NUR ---
PATIENT REPOSITIONED IN BED AND ASSISTED WITH A BED BATH. PATIENT DID NOT TOLLERATE ROLLING WELL. C/O PAIN DURING MOVEMENTS HOWEVER WHEN PATIENT WAS NOT MOVING SHE REPORTED NO PAIN. NEW BEDDING AND GOWN. PUREWICK CHANGED, BREIF CHANGED. PERICARE PROVIDED. NO FURTHER NEEDS AT THIS TIME. CALL LIGHT WITHIN REACH. BED ALARM ON.
[2024-02-18] VITALS (7 sets, daily range): BP systolic 108–144; BP diastolic 44–56
--- NOTE | 2024-02-18 00:19 | NUR ---
ROUNDING ON PATIENT. RESTING IN BED WITH EYES CLOSED. RESPIRATIONS EVEN AND UNLABORED. HOSPITAL CPAP MACHIENE ON AND FUNCTIONING WNL. CPOX READINGS WNL. CALL LIGHT WITHIN REACH, BED ALARM ON.
--- NOTE | 2024-02-18 02:15 | NUR ---
PATIENT RESTING IN BED WITH EYES CLOSED. CPAP IN PLACE, CPOX IN PLACE READINGS WNL. RESPIRATIONS ARE EVEN AND UNLABORED. CALL LIGHT WITHIN REACH, BED ALARM ON.
--- NOTE | 2024-02-18 04:10 | NUR ---
PATIENT IS RESTING IN BED WITH EYES CLOSED. CPOX READINGS WNL. CPAP ON AND FUNCTIONING WNL. CALL LIGHT WITHIN REACH. BED ALARM ON.
--- NOTE | 2024-02-18 06:20 | NUR ---
VSS, patient awake laying in bed slightly on left side. C/O severe pain with the slightest movement such as raising the head of the bed. Pain does subside after a few minutes of moving. Patient given PRN medications. CPOX readings WNL. Patient requested fresh ice water and coffee, both given. RN assisted patient with drinking water and a few sips of coffee. No further needs at this time. Call light within reach, bed alarm on.
--- NOTE | 2024-02-18 07:14 | NUR ---
VERBAL REPORT RECEIVED FROM DAWNA FLOWERS. PT RESTS IN BED WITH EYES CLOSED, RESP EVEN AND UNLABORED.
[2024-02-18] MEDS ORDERED: HYDROCODONE/ACETA 7.5/325 TAB PO PRN (11:45)
--- NOTE | 2024-02-18 12:36 | NUR ---
PT RESTS IN BED, AWAKE AND ALERT TO SELF. VISITORS X4 IN ROOM. CALL LIGHT IN REACH, NO REQUESTS AT THIS TIME.
--- NOTE | 2024-02-18 12:58 | NUR ---
PER MD, PT FAMILY GIVEN EDUCATION HANDOUT ON SEROQUEL. YESTERDAY SON WAS GIVEN HANDOUT WELL, ALONG WITH EDUCATION FROM [facility] IN PHARMACY. NO FURTHER NEEDS AT THIS TIME.
--- NOTE | 2024-02-18 14:26 | NUR ---
LAST REMODELER REPAIRER CHANGED PT PUREWICK, PERFORMED PERICARE, AND REPOSITIONED PT. RN WAS IN THE ROOM. NO FURTHER COMPLAINTS. CALL LIGHT WITHIN REACH
[2024-02-18] MEDS ORDERED: CYCLOBENZAPRINE HCL 10 MG TAB PO SCH (15:00)
--- NOTE | 2024-02-18 16:57 | NUR ---
PT RESTS IN BED WITH EYES CLOSED, RESP EVEN AND UNLABORED. 3L O2 VIA NC IN PLACE, O2 SATS 92%. BED ALARM ON.
--- NOTE | 2024-02-18 19:05 | NUR ---
SHIFT REPORT RECEIVED FROM KENNETHCTNOLBERTO LANGFORD. pt AWAKE AND RESTING IN BED, CPOX IN PLACE, CHRONIC 3LNC ALSO NOTED IN PLACE. SPO2 LOW 90'S, HR WNL. pt PLEASANTLY CONFUSED, BED ALARM ON FOR SAFETY. HX DEMENTIA PER REPORT. CALL LIGHT IN REACH, BOARD UPDATED. DISCUSSED POC WITH pt, pt DENIES NEEDS OR CONCERNS.
[2024-02-18] MEDS ORDERED: QUETIAPINE FUMARATE 25 MG TAB PO SCH (21:00)
--- NOTE | 2024-02-18 21:20 | NUR ---
ROUNDED ON pt, pt AWAKE AND RESTLESS IN BED. ASKING WHERE SHE WAS AND THAT SHE WANTS TO SEE HER FAMILY. pt REORIENTED TO PLACE, DATE/TIME, AND SITUATION. pt DEMANDING WE TAKE HER TO THE CLINIC, STATING, "I NEED TO GO TO THE CLINIC, THE DOCTORS KNOW ME THERE". pt EDUCATED THAT CLINIC IS CLOSED. pt THEN STATES, "THEN TAKE ME TO THE ER". pt EDUCATED THAT IF pt GOES TO THE ER pt WOULD JUST BE BROUGHT BACK TO THE SAME ROOM. pt THEN WISHES TO GO HOME, pt AGAIN EDUCATED ON POC AND MD PROGRESS NOTE AND THAT POC IS FOR pt TO BE DISCHARGED HOME IN THE MORNING. FLOAT DAWNA SINGLETON NOW IN ROOM AND ASSISTING WITH pt CARES INCLUDING-CARMEN CARE, pt BOOST, AND REPOSITION. pt FOLLOWING DIRECTIONS BETTER AT THIS TIME. pt KNOWS DAWNA SINGLETON AND WAS DISCUSSING HOW THEY KNOW EACH OTHER OUTSIDE OF THE HOSPITAL. pt INCONTINENT OF URINE, CARMEN CARE DONE AND NEW PUREWICK IN PLACE. LINE SHAPED BRUISE NOTED TO RIGHT GROIN AREA, IN SIMILAR LOCATION A BRIEF WOULD BE FOUND. CURRENT DIRTY BRIEF WAS FOUND TO BE LOOSELY IN PLACE AND NOT CAUSE OF DISCOLORATION SCOTT. NEW ATTENDS IN PLACE AND pt BOOSTED IN BED, BED ALARM RESUMED AND FRESH ICE WATER PROVDIED. SCHEDULED MEDS GIVEN, SCHEDULED SENNA REFUSED BY pt, EDUCATION PROVIDED. pt AGAIN DECLINED. pt LEFT RESTING IN BED, WILL CONTINUE TO MONITOR. VSS. CALL LIGHT IN REACH.
--- NOTE | 2024-02-18 22:04 | NUR ---
REPORT GIVEN TO DAWNA FLOWERS, DAWNA FLOWERS TO TAKE OVER PRIMARY RN AT THIS TIME.
--- NOTE | 2024-02-18 22:30 | NUR ---
REPORT RECEIVED FROM SALVATORE TONEY. PATIENT IN BED LAYING ON BACK WITH PILLOWS UNDER HER RIGHT SHOULDER FOR SUPPORT. ASSESSMENT COMPLETED. 2ND RN SKIN CHECK COMPLETED WITH SALVATORE TONEY. LUNGS CTA, BOWEL TONES ACITVE X 4 QUADRANTS. PATIENT APPEARS DROWSY WHEN RN ATTEMPTING TO COMMUNICATE WITH HER AT THIS THIS TIME. STILL ABLE TO ANSWER QUESTIONS APPROPRIATELY. PATIENT CONTINUES TO HAVE SHARP LOWER BACK PAIN WHEN CHANGING POSITIONS AND MOVING BLLE. RT TO FLOOR AND PLACED CPAP ON PATIENT. NO FURTHER NEEDS AT THIS TIME. CALL LIGHT WITHIN REACH, BED ALARM ON.
--- NOTE | 2024-02-19 00:20 | NUR ---
PATIENT RESTING IN BED WITH EYES CLOSED. RESPIRATIONS EVEN AND UNLABORED. CPAP ON CPOX READINGS WNL. CALL LIGHT WITHIN REACH, BED ALARM ON.
--- NOTE | 2024-02-19 02:09 | NUR ---
PATIENT RESTLESS IN ROOM. TOOK CPAP MASK OFF. RN ATTEMPTED TO EDUCATED PATIENT ON IMPORTANCE OF CPAP MASK WHILE SLEEPING. PATIENT ADAMANT ON NOT PUTTING CPAP MASK BACK ON. PATIENT FACIAL EXPRESSIONS INDICATE SHE IS IN PAIN. WHEN ASKED IF PATIENT IS IN PAIN SHE STATED, "YES." RN OFFERED PAIN MEDICATIONS, PATIENT REFUSED X 3. SHE STATED, "JUST LEAVE ME ALONE SO I CAN GO BACK TO SLEEP." OXYGEN ON 5L/MIN VIA NC WITH CPOX READINGS WNL. PATIENT REPOSITIONED IN BED. RESTING WITH EYES CLOSED AT THIS TIME. CALL LIGHT WITHIN REACH, BED ALARM ON.
--- NOTE | 2024-02-19 04:00 | NUR ---
noises heard from rn station, this rn in room to assess. pt awake and resting in bed, nc remains in place but pt removed cpox o2 sticker probe. pt angry with staff and repeatedly voices desire to go home. pt restless in bed and wants to sit on edge of bed. primary rn updated and to administer prn pain medication. pt hallucinating and reports seeing "all the people around the bed". attempted to reorient pt that she's safe and in the hospital, primary rn demetria now in room with pt. call light in reach and bed alarm on. pt provided with sips of water.
--- NOTE | 2024-02-19 04:15 | NUR ---
RN IN ROOM TO ASSIST WITH REPOSITIONING PATIENT. PATIENT STATING, " MY TAIL BONE HURTS." PATIENT AGREEDED TO TAKE PRN PAIN MEDICATIONS. PATIENT REPOSITIONED IN BED TO LAYING ON RIGHT SIDE. DURING REPOSITIONING PATIENT WAS ABLE TO USE UPPER BODY TO ROLL SELF WITH 1 PERSON ASSIST. PATIENT HALLUCINATING AND SEING OTHER PEOPLE IN THE ROOM WHO WERE NOT PRESENT. WHEN ATTEMPTING TO REORIENT PATIENT SHE BECAME ANGRY AND STATED, "YEAH WHY SHOULD I BELIEVE YOU." PATIENT RESTING IN BED AT THIS TIME. OXYGEN ON VIA NC, CPOX PROBE ON AND READINGS WNL. CALL LIGHT WITHIN REACH, BED ALARM ON.
[2024-02-19 06:08] VITALS: BP 146/68
[2024-02-19 06:12] VITALS: BP 146/68
--- NOTE | 2024-02-19 06:16 | NUR ---
PATIENT RESTING IN BED. VSS, CPOX READINGS WNL, OXYGEN ON AT 4L/MIN WHILE SLEEPING DUE TO PATIENT NON COMPLIANCE WITH CPAP WHILE SLEEPING. REPORTS PAIN IS "OKAY" AT THIS TIME. DENIES ANY FURTHER NEEDS. CALL LIGHT WITHIN REACH, BED ALARM ON.
--- NOTE | 2024-02-19 07:26 | NUR ---
PT RESTING QUIET ALERT AT TIME OF SHIFT REPORT. DOES NOT MAKE CONSTANT EYE CONTACT WHILE SPEAKING, HER EYES MOVE OFF WITHOUT APPARENT FOCUS. SHE ANSWERS QUESTIONS APPROPRIATELY. ADJUSTING BED UP SO PT CAN DRINK SHE CRIES OUT IN PAIN REQUESTING BED BE LOWERED SOMEWHAT. SHE AGREES SHE IS COMFORTABLE AT REST BUT ANY MOVEMENT AT ALL IS "EXCRUCIATING" PT DENIES NEED OF ANYTHING AT THIS TIME AFTER FRESH H20 IS PLACED AT BEDSIDE. CALL LIGHT IS IN REACH INSTRUCTIONS PROVIDED
--- NOTE | 2024-02-19 08:46 | NUR ---
kindergarten instructional assistant raised pt head enough so she could see her breakfast tray from her bed without being in pain. pt refused kindergarten instructional assistant assistance with eating.
--- NOTE | 2024-02-19 09:22 | NUR ---
PT CONTINUES RESTING IN BED AT THIS TIME. NO C/O PAIN UNTIL SHE MOVES THEN PAIN IS REPORTED SEVERE. ASSISTED PT TO CALL HER SON PER HER REQUEST, SHE TELLS HIM TO COME GET HER SHE HAS TO GET OUT OF HERE "THEY AREN'T DOING ANYTHING FOR ME ANYWAY" NO FURTHER REQUEST FROM PT AT THIS TIME
[2024-02-19 10:01] VITALS: BP 135/41
--- NOTE | 2024-02-19 10:20 | NUR ---
P/T IN TO WORK WITH PT SHE REFUSES, REPORT GIVEN TO DR ZALDIVAR. PT RESTING IN BED AT THIS TIME. SHE IS DRINKING PLENTY OF WATER BUT HAS HAD BITES OF FRUIT ONLY REFUSING BREAKFAST OR HUNGER
--- NOTE | 2024-02-19 10:50 | NUR ---
FAMILY PRESENT IN THE ROOM DR ZALDIVAR NOTIFIED SO CARE AND DC INSTRUCTIONS CAN BE COORDINATED
--- NOTE | 2024-02-19 12:36 | NUR ---
PT TOLERATES A FEW BITES OF NOON MEAL REFUSES ANYTHING FURTHER. SHE IS DRINKING PLENTY OF WATER. RESTING IN BED RESPONDING TO UNSEEN STIMULI.
--- NOTE | 2024-02-19 13:35 | NUR ---
PT TO XRAY VIA BED THEN BACK TO THE ROOM. ACCOMPANYING RN REPORTS SHE DID WELL AND WAS ABLE TO TURN AND COOPERATE WITH TECH NEEDS. PT RESTING EYES CLOSED NOW
[2024-02-19 14:08] VITALS: BP 158/87
--- NOTE | 2024-02-19 14:26 | NUR ---
PT REPOSITIONED AND PURWIK CHANGED, WELL TOLERATED.
[2024-02-19] MEDS ORDERED: MAGNESIUM CITRATE 300 ML BTL PO ONE (16:15)
--- NOTE | 2024-02-19 16:47 | NUR ---
PT UP TO SITTING ON EDGE OF BED WITH 2 PERSON MAX ASSIST. PT STANDS WITH FWW AND 2 PERSON MODERATE ASSIST. PT ABMULATES 3-4 STEPS TO THE RECLINER THEN REQUIREDS ASSISTED SIT. PT WAS ABLE TO STAND WITH FWW AGAIN AND REPOSITION SELF IN CHAIR. PT REQUIRED FREQUENT PROMPTING AND ENCOURAGEMENT DURING TRANSFER. PT REQUIRED FREQUENT BREAKS TO RECOVER FROM SOB. PT RECOVERED FULLY FROM SOB WITH BASELINE CHRONIC 3L OF O2 VIA NASAL CANNUAL. MOVEMENT OF PT APPEARED TO TRIGGER BACK SPASMS FOR THE PT. PT WAS INFORMED WHEN MOVEMENT WAS ANTICIPATED AND MOVEMENT WAS PERFORMED SLOW AND PAUSED LONG ENOUGH TO ALLOW BACK PAIN TO RESOLVE. PAIN APPEARS TO BE A BARRIER TO PHYSICAL ACTIVITY HOWEVER, ONCE STANDING PT WAS ABLE TO BEAR WEIGHT AND MOVE INTO A STANDING POSITION WITHOUT ASSIST AND TOLERATED THIS FAIR ACTIVITY CAUSED SOB. PT RECLINED, MEAL SET UP ON TRAY, CALL LIGHT IN REACH. FAMILY MEMBERS X3 IN ROOM VISITING.
--- NOTE | 2024-02-19 17:22 | NUR ---
NO BM SINCE ADMIT ON 02/16, MAGNESIUM CITRATE NIO OBTAINED. FAMILY REPORTS PT HAS NOT HAD A BM SINCE 02/13 AT HOME. PT HAS POOR PO INTACT, NOT LIKEY TO TAKE MAGNESIUM CITRATE. BISACODYL SUPPOSITORY NIO OBTAINED. FAMILY EDUCATED ON BOWEL CARE PLAN.
[2024-02-19] MEDS ORDERED: bisacodyL 10 MG SUPP PR ONE (17:30)
[2024-02-19 18:04] VITALS: BP 139/64
--- NOTE | 2024-02-19 19:20 | NUR ---
REPORT RECEIVED FROM DAWNA LANGFORD. pt AWAKE RESTING IN CHAIR, 3L OXYGEN BY NC IN PLACE, SPO2 92%. RNS IN ROOM AT THIS TIME TO TRANSFER pt TO BED.
--- NOTE | 2024-02-19 19:29 | NUR ---
PT UNABLE TO FOLLOW INSTRUCTIONS OR TOLERATED AMBULATORY TRANSFER TO BED. PT TRANSFERRED TO BED WITH RACHELL LIFT. SUPPOSITORTY RECEIVED FOR BOWEL CARE, SEE EMAR. PT TOLERATED WELL. TOLERATES TURNING ON TO RIGHT SIDE BEST. PERICARE PROVIDED, NEW PUREWICK PUT IN PLACE. BED RAILS UP, BED ALARM ON, CALL LIGHT IN REACH.
[2024-02-19 21:18] VITALS: BP 177/69
--- NOTE | 2024-02-19 21:25 | NUR ---
pt RESTING IN BED AWAKE. CONFUSED, REORIENTATION TO DATE, TIME, PLACE, PLAN OF CARE PROVIDED. DRINKS OF WATER AND JUICE PROVIDED. ASSESSMENT COMPLETE. pt RATES PAIN 7/10 IN BACK, GRIMACES, TENSE WITH MOVEMENT. PRN PAIN MEDICATION ADMINISTERED. pt REPOSITIONED TO LEFT SIDE WITH PILLOW UNDER RIGHT HIP. CALL LIGHT IN REACH. BED ALARM ON. 3L OXYGEN BY NC IN PLACE.
--- NOTE | 2024-02-19 21:56 | NUR ---
CPOX ALARMING, SPO2 80% ON RA. pt REMOVED OXYGEN. OXYGEN REAPPLIED, SPO2 INCREASES TO 89% WITH 3L OXYGEN IN PLACE. RT NOTIFIED AND IN ROOM. CPAP APPLIED AT THIS TIME. BED ALARM ON. pt RESTING WITH EYES CLOSED.
--- NOTE | 2024-02-19 23:23 | NUR ---
PT RESTING IN BED WITH HOSPITAL CPAP ON. CPOX IN PLACE, SPO2 WNL. NO DISTRESS NOTED.
--- NOTE | 2024-02-20 01:30 | NUR ---
CHECKED ON pt. pt SHIFTING SELF IN BED. HOSPITAL CPAP ON. NO DISTRESS NOTED. CPOX WNL.
--- NOTE | 2024-02-20 02:45 | NUR ---
pt RESTING IN BED WITH EYES CLOSED. HOSPITAL CPAP MACHINE IN PLACE, SPO2 98%, HR 80. BED ALARM ON.
[2024-02-20 02:48] VITALS: BP 177/69
[2024-02-20 03:59] VITALS: BP 126/60
--- NOTE | 2024-02-20 04:35 | NUR ---
pt PULLS OFF CPAP MACHINE. 3L OXYGEN BY NC REAPPLIED. pt CONFUSED, STATES WHY ARE YOU ALL IN MY HOUSE. REORIENATION PROVIDED. pt RELUCTANTLY ALLOWS RNS TO TURN TO CHANGE LINENS, INCONTINENT OF VOID ON WHITE CHUX, DRAW SHEET. pt TURNS WITH ASSIST, NEW LINENS, CHUX, ATTENDS AND PUREWICK PLACED. EDUCATION PROVIDED. pt COMPLAINS OF 10/10 PAIN, PRN PAIN MEDICATION ADMINISTERED. CALL LIGHT IN REACH. BED ALARM ON. pt REQUESTS TO SLEEP.
--- NOTE | 2024-02-20 07:31 | NUR ---
VERBEAL REPORT RECEIVED FROM DAWNA MTZ. PT RESTS IN BED WITH EYES CLOSED, RESP EVEN AND UNLABORED, O2 SATS 96%, PULSE 73.
[2024-02-20 09:48] VITALS: BP 120/43
--- NOTE | 2024-02-20 09:48 | NUR ---
PATIENT IS AWAKE AND CONFUSED AND IS UNABLE TO HAVE A DISCUSSION. PATIENT'S HOME CPAP IS HAVING PROBLEMS AND NEEDS A LARGE MASK FO HOME USE. DC PARK RANGER WILL NOTIFED CELINA AND SPOKE TO DEVAUGHN AND SOMEONE WILL COME OU TODAY TO FIX THE CPAP.
[2024-02-20 09:52] VITALS: BP 120/43
--- NOTE | 2024-02-20 10:45 | NUR ---
PHYSICAL THERAPY IN ROOM WITH PT.
[2024-02-20 13:31] VITALS: BP 144/81
--- NOTE | 2024-02-20 14:39 | NUR ---
SPOKE TO PATIENT'S DIFFERENT FAMILY MEMBERS,DEBRA AND BROTHER. PATIENT HAS BEEN MEDICALLY CLEARED BY THE MD FOR DISCARGED. FAMILY DENIES THE NEED FOR SNF SINCE THE PATIENT WAS RECENTLY RELEASED FROM [facility] [place] AND WAS UPSET WITH THAT PLACEMENT. ESTEBAN THE DAUGHTER HAS HIRED CAREGIVERS TO HELP WITH WITH THE PATIENT CARE. DIFFERNT OPITONS FOR PLACEMENT WERE DISCUSSED AND ESTEBAN STATES THEY CAN MANAGE AT HOME WITH HOMEHEALTH AND CARE GIVERS TO HELP. DR ZALDIVAR UP-DATED ADOUT THE PATIENT'S FAMILY'S WISH.
[2024-02-20 18:13] VITALS: BP 124/58
[2024-02-20] MEDS ORDERED: CYCLOBENZAPRINE10 MG PO (19:12)
[2024-02-20] MEDS ORDERED: QUETIAPINE FUMA25 MG PO (19:13)
[2024-02-20] MEDS ORDERED: HYDROCODON-ACE1 EA11 PO (19:14)
--- NOTE | 2024-02-20 20:00 | NUR ---
DAUGHTER CHAUNCEY AND SON SEGUNDO ARRIVE TO UNIT. DR. ZALDIVAR SPEAKS WITH BOTH, BOTH AGREE ON DISCHARGE PLAN TO HOME. PT TO RECLINER WITH 2PA AND FWW. CHAUNCEY INSISTS PT AMBULATES TO BATHROOM TO BE DRESSED. PT AMBULATES WITH FWW AND 1PA FOLLOWED BY WHEELCHAIR. PT MAKES IT USP TO BATHROOM THEN NEEDS TO SIT IN WHEELCHAIR. PT TO BR AND THEN TRANSFERS SELF TO TOILET WITH ASSIST ENCOURAGED BY DAUGHTER. DAUGHTER DRESSES PT. PT ASSISTED BACK TO WHEELCHAIR BY DAUGHTER AND SON. IV REMOVED, TIP, INTACT, GAUZE AND COBAN DRESSING APPLIED TO SITE, PT TOLERATED WELL. DISCUSSED DISCHARGE INSTRUCTIONS WITH PT AND FAMILY. PT LEAVE UNIT VIA WHEELCHAIR AND TRANSFERS TO PRIVATE CAR DRIVEN BY DAUGHTER. DAUGHTER STATES PT HAS A WHEELCHAIR AT HOME WITH THEY PLAN TO USE TO TRANSFER AND TRANSPORT PT NEEDED.
== END 2024-02-20 19:15 | disposition home or self-care (01) | DRG 552 ==
LOC: ED 22:16 → MS 22:18
PROVIDERS: Internal Medicine; ADMIT Internal Medicine; ATTEND Internal Medicine
DX: M54.50 Low back pain, unspecified (principal); J96.11 Chronic respiratory failure with hypoxia; I10 Essential (primary) hypertension; J44.9 Chronic obstructive pulmonary disease, unspecified; G89.29 Other chronic pain; F03.C0 Unspecified dementia, severe, without behavioral disturbance, psychotic disturbance, mood disturbance, and anxiety; E66.9 Obesity, unspecified; Z88.0 Allergy status to penicillin; Z88.2 Allergy status to sulfonamides; Z88.8 Allergy status to other drugs, medicaments and biological substances; Z79.899 Other long term (current) drug therapy; Z87.891 Personal history of nicotine dependence
CPT/HCPCS: 36415; 71045; 72080; 74176; 74177; 80048; 80053; 81003; 82803; 83690; 85025; 94640; 94660; 94762; 96372; 96374; 97161; 97165; 97530; 97535; 99284-25; A9270; G0378; J1650; Q9967